=== PATIENT | female | born 1950 | race Caucasian/White ===

== ENCOUNTER 2017-02-24 17:36 | Emergency (ER) | payer MEDICARE, OTHER ==
[2017-02-24 17:40] VITALS: BP 123/87; PULSE 67; RESP 19; TEMP 98.2; O2SAT 95
--- NOTE | 2017-02-24 17:54 | EDPHY ---
H & P Time Seen by Provider: 02/24/17 17:43 HPI/ROS: CHIEF COMPLAINT: Flashes in right eye HISTORY OF PRESENT ILLNESS: This patient is a 66 y/o female complaining of a sudden onset right-sided visual disturbance. At 3pm today she was playing Clue with her son and noted intermittent crescent-shaped flashes of light in her right eye. She notes these particularly in her peripheral vision. The flashing occurs frequently but not regularly. Subsided now. She has taken aspirin and tried drinking more water without relief. She did have a mild headache which is now resolved. No eye pain. The patient endorses insomnia and increased stress last night. Her last eye exam was 1.5 years ago and was normal. She denies any significant past medical history or surgeries and does not take any regular medications. She denies recent injuries or falls. No recent illness or any other associated symptoms. REVIEW OF SYSTEMS: A 10 point review of systems was performed and is negative with the exception of the elements mentioned in the history of present illness. Past Medical/Surgical History: Denies. Social History: . Lives in [place]. Retired. Nonsmoker. Smoking Status: Never smoked Physical Exam: General Appearance: Alert, pleasant Visual Acuity: noted from Nurse's notes. Lids: no proptosis, no periorbital erythema or swelling, no vesicles Conjunctivae: No erythema, no discharge Pupils: equal round and reactive to light, EOMI Cornea: Normal Anterior chamber: Clear, no hyphema Fundi: Normal Constitutional: Initial Vital Signs Temperature (C) 36.8 C 02/24/17 17:38 Heart Rate 67 02/24/17 17:38 Respiratory Rate 19 02/24/17 17:38 Blood Pressure 123/87 H 02/24/17 17:38 O2 Sat (%) 95 02/24/17 17:38 O2 Delivery Mode Room Air Allergies/Adverse Reactions: Penicillins Allergy (Verified 02/24/17 17:38) Home Medications: Medication Instructions Recorded NK [No Known Home Meds] 02/24/17 Medical Decision Making ED Course/Re-evaluation: 66 y/o female presents with intermittent crescent-shaped flashes in her right eye. [facility] normal and eye exam unremarkable. Plan to consult with edge molder assembler [employer]ible [employer]. Possible retinal/vitreous detachment. 18:[address] Lazar, edge molder. He will see the patient this week, and she can call his office before if she has worsening of condition. Reassessed patient. Plan to discharge home in good condition. Discussed followup with Dr. Lazar and return precautions. She is comfortable with this plan. Differential Diagnosis: Differential diagnosis includes hyphema, acute iritis, traumatic mydriasis, corneal abrasion, globe rupture. Departure - Departure Disposition: Home, Routine, Self-Care Clinical Impression: Flashing lights seen, Transient vision disturbance, right Condition: Good Instructions: Blurred Vision (ED) Additional Instructions: 1. The attached instructions do not match your condition perfectly, but include helpful information regarding visual disturbances. 2. Follow up with ophthalmology next week, call Saturday for an appointment. Call his office today or tomorrow if you note increasing frequency of flashes, changes in or loss of vision, or other changes in condition. 3. Return to the emergency department if you develop pain in your eye, loss of vision or further changes in your vision, or other worsening of condition. Referrals: David Lazar MD [Medical Doctor] - As per Instructions Report Scribed for: Ivana Clark Report Scribed by: Keyona Wilhelm Date of Report: 02/24/17 Time of Report: 17:54 Physician Review and Approval Statement: 02/24/17 17:54 Portions of this note were transcribed by a biomedical scientist. I personally performed a history, physical exam, medical decision making, and confirmed accuracy of information the transcribed note.
== END 2017-02-24 18:28 | disposition home or self-care (01) ==
DX: H53.121 Transient visual loss, right eye (principal)

== ENCOUNTER → 2018-04-15 | Outpatient (CLI) | payer OTHER | LOC: FIMAGING 09:42 | PROVIDERS: ATTEND Internal Medicine | DX: Z13.820 Encounter for screening for osteoporosis (principal); M81.0 Age-related osteoporosis without current pathological fracture; M85.89 Other specified disorders of bone density and structure, multiple sites; Z78.0 Asymptomatic menopausal state ==

== ENCOUNTER → 2018-04-21 | Outpatient (CLI) | payer OTHER | LOC: FIMAGING 14:34 | PROVIDERS: ATTEND Internal Medicine | DX: Z12.31 Encounter for screening mammogram for malignant neoplasm of breast (principal) ==